=== PATIENT | male | born 1940 | race Caucasian/White ===

== ENCOUNTER 2021-02-13 09:25 | Inpatient (IN) | payer OTHER, MEDICARE ==
[~2021-02-13] VITALS: Ht 165.1 cm; Wt 88.8 kg
--- NOTE | 2021-02-13 11:32 | NUR ---
unable to get iv placed, iv team paged
[2021-02-13 12:18] LABS: ABSOLUTE NEUTROPHILS 16.5 thou/uL (1.4-8.2); BASOPHILS 0.1 % (0.0-2.0); HEMATOCRIT 39.6 % (42.0-52.0); HEMOGLOBIN 13.3 gm/dL (14.0-18.0); LYMPHOCYTES 4.5 % (24.0-44.0); MCHC 33.7 g/dL (28.0-37.0); MONOCYTES 9.8 % (1.0-8.0); PLATELET COUNT 165 thou/uL (150-400); POLYS 85.6 % (36.0-66.0); RBC 4.31 mil/uL (4.50-6.00); RDW 13.6 % (10.5-14.5); WBC 19.3 thou/uL (4.0-11.0)
[2021-02-13 12:24] LABS: CALCIUM 8.7 mg/dL (8.5-10.1); CREATININE 1.1 mg/dL (0.7-1.3); POTASSIUM 4.5 mmol/L (3.5-5.1)
[2021-02-13 12:30] LABS: DIRECT BILIRUBIN 0.3 mg/dL (<0.1-0.2)
[2021-02-13 14:30] LABS: URINE BILIRUBIN NEGATIVE (Negative); URINE BLOOD 1+ (Negative); URINE COLOR YELLOW; URINE GLUCOSE-RANDOM* NEGATIVE (Negative); URINE KETONES 3+ (Negative); URINE LEUKOCYTES-REFLEX TRACE (Negative); URINE PROTEIN (DIPSTICK) TRACE (Negative); URINE SPECIFIC GRAVITY 1.025 (1.005-1.035)
--- NOTE | 2021-02-13 14:34 | NUR ---
buttocks red, blanchable, excorated. pt had 2 briefs on from care home.
[2021-02-13 14:35] LABS: URINE CLARITY SL HAZY; URINE NITRITE-REFLEX POSITIVE (Negative)
[2021-02-13 14:47] LABS: BACTERIA-REFLEX >30 Many /HPF (None Seen); CASTS None Seen /LPF (None Seen); CRYSTALS None Seen /LPF (None Seen); SQUAMOUS None Seen /LPF (0-3); URINE RBC 3-10 Few /HPF (NONE SEEN); URINE WBC-REFLEX 6-15 Few /HPF (0-5)
[2021-02-13 15:19] VITALS: BP 135/63
[2021-02-13 15:58] VITALS: BP 144/77
--- NOTE | 2021-02-13 17:48 | NUR ---
ASSUMED PT CARE UPON ADMISSION TO UNIT AT 1410. PATIENT IS ALERT BUT NONVERBAL. SISTER (ADEN), AND FACILITY ([phone]) HAVE BEEN CONTACTED TO ASSIST WITH THE ADMISSION. PATIENT HAS A PATENT IV WITH FLUIDS INFUSING. PATIENT IS INCONTINENT OF BOWEL AND BLADDER. EXCORIATION NOTED IN THE PIPER AREA. PATIENT ON ROOM AIR. NO PAIN NOTED. PATIENT PLACED ON TELE. FALL PRECAUTIONS ARE IN PLACE, CALL LIGHT WITHIN REACH.
[2021-02-13] MEDS ORDERED: CARVEDILOL6.25 M1 PO (19:02)
[2021-02-13] MEDS ORDERED: DIVALPROEX SOD125 MG PO (19:03)
[2021-02-13] MEDS ORDERED: FUROSEMIDE 20 M20 M1 PO (19:04)
[2021-02-13] MEDS ORDERED: PRINIVIL20 MG PO (19:06)
[2021-02-13 19:58] VITALS: BP 134/76
--- NOTE | 2021-02-14 04:13 | NUR ---
ASSUMED CARE OF PT AT SHIFT CHANGE. PT IS ALERT BUT ONLY ORIENTED TO PERSON. FALL PRECAUTION IN PLACE. PT REQUIRES TOTAL CARE. PT RAN SR ON TELE. PT APPEARS TO BE COMFORTABLE. ASSESSMENT CHARTED. IVF CONTINUED. PT IS ABLE TO TURN SELF. PT SLEPT PART OF THE SHIFT. VSS AND NO S/S OF ACUTE DISTRESS. WILL CONTINUE TO MONITOR.
[2021-02-14 05:50] LABS: HEMATOCRIT 38.5 % (42.0-52.0); HEMOGLOBIN 13.2 gm/dL (14.0-18.0); MCH 31.9 pg (26.0-34.0); MCHC 34.4 g/dL (28.0-37.0); PLATELET COUNT 179 thou/uL (150-400); RBC 4.14 mil/uL (4.50-6.00); RDW 13.9 % (10.5-14.5); WBC 24.1 thou/uL (4.0-11.0)
[2021-02-14 06:09] LABS: CALCIUM 7.9 mg/dL (8.5-10.1); CREATININE 0.9 mg/dL (0.7-1.3); MAGNESIUM 2.1 mg/dL (1.8-2.4); POTASSIUM 4.6 mmol/L (3.5-5.1)
[2021-02-14 07:26] VITALS: BP 135/67
[2021-02-14 09:04] LABS: ABSOLUTE NEUTROPHILS 20.5 thou/uL (1.4-8.2)
[2021-02-14 09:05] LABS: ANISOCYTOSIS SLIGHT
--- NOTE | 2021-02-14 11:57 | NUR ---
PT ADMITTED RELATED TO UTI, SEPSIS. CM REVIEWED CHART AND SPOKE WITH CARE TEAM. CM CALLED AND SPOKE WITH PT'S SISTER/DPOA ADEN PEREZ THIS DAY. SHE INDICATED THAT PT RESIDES AT [facility] ([facility]) IN [place]. SHE INDICATED SHE DIDN'T KNOW IF PT HAD USED ANY DME CARD GAME OPERATOR. SHE INDICATED THAT FACILITY SHOULD HAVE COPY OF DPOA PAPERWORK. SHE INDICATED SHE PLANS ON PT RETURNING TO FACILITY ONCE MEDICALLY STABLE. SHE INDICATED THAT PT HAS BEEN IN A FACILITY SETTING FOR 5 YRS. CM CALLED AND SPOKE WITH NURSE NAMED NICK AT [facility] AND SHE INDICATED THAT PT HAD BEEN INDEPDNENT WITH GAIT CARD GAME OPERATOR AND THAT HE HAD BEEN ON A REGULAR DIET. CM INDICATED THAT PT AND OT ARE ORDERED AND THAT ST ASSESSED AND THAT PT IS ON PUREED DIET AND NECTAR THICK LIQUIDS. PT ON DAILY IV CEFTRIAXONE. CM FOLLOWING REGARDING DC PLANNING. PT'S SISTER IS ON HER WAY HERE TO VISIT AND PLANS TO SEE PT ON THURSDAY.
--- NOTE | 2021-02-14 12:55 | NUR ---
Received awake on bed. Due medications given as prescribed. On room air. Vital signs stable. On telemetry; no complains and signs of chest pain, crushing sensation and heaviness. On nothing per orem- pt informed and aware; a/w ST evaluation. Incontinent of bowel and bladder, checked frequently and changed as needed. Non-verbal. No nausea, no vomiting and no abdominal pain noted. With NS at 75cc/hr, infusing well at R FA; on IV antibiotics as well. Pt turned on his sides, barrier cream applied every incontinent episode. No sign of pain noted during assessment. To continue monitoring patient.
--- NOTE | 2021-02-14 14:42 | NUR ---
FAXED CLINICAL UPDATES TO [facility]. WILL CONFIRM WITH MARI/MORGAN THAT HE RECEIVED. [facility] P [phone]; FAX [phone]
[2021-02-14 15:21] VITALS: BP 130/74
[2021-02-14 19:55] VITALS: BP 114/62
--- NOTE | 2021-02-15 04:43 | NUR ---
Assumed pt care at 1900. Alert,oriented to self with aphasia and marmbles some unclear words when spoken to. Pt gets irritable/combative during cares. Temp 100.0 medicated with Tylenol PO came down to 98.5. Incontinent of bladder this shift;pericare done PRN/moisture barrier applied as needed. IVF infusing via RFA w/o problems. NSR on telemetry. Fall precautions in place,resting quietly w/o distress, will continue to monitor pt.
[2021-02-15 07:36] VITALS: BP 126/64
--- NOTE | 2021-02-15 11:47 | NUR ---
CARE TEAM INDICATED THAT PT JOSE LIKELY BE MEDICALLY STABLE TO DC BACK TO [facility] TOMORROW Thursday02/15/21. CLINICAL UPDATE SENT TO FACILITY WITH NOTIFICATION. CM TO NOTIFY PT'S SISTER/DPOA OF PROBABLE DC TOMORROW. CHART COPY ORDERED. ORDERS WILL NEED TO BE FAXED TO 91 . CALL TO ARRANGE TRANSPORT AND GIVE REPORT.
--- NOTE | 2021-02-15 14:07 | NUR ---
Received awake on bed. Due medications given as prescribed. On room air. Vital signs stable. On telemetry; no complains and signs of chest pain, crushing sensation and heaviness- No code. On pureed diet, nectar thick liquids; assisted and encouraged in eating and drinking; no nausea, no vomiting and no abdominal pain noted. Incontinent of bowel and bladder, checked frequently and changed as needed. With NS at 75cc/hr, infusing well at R FA. Barrier cream applied every incontinent episode. No signs of pain noted during assessment. Pt non verbal, checked frequently. Pt able to sit out on the chair today; with episodes of impulsiveness; chair and bed alarm on. Covid swab done- specimen obtained and sent as per CM. To continue monitoring patient.
[2021-02-15 15:04] LABS: ABSOLUTE NEUTROPHILS 3.3 thou/uL (1.4-8.2); BASOPHILS 0.5 % (0.0-2.0); EOSINOPHILS 1.5 % (0.0-3.0); HEMATOCRIT 38.1 % (42.0-52.0); LYMPHOCYTES 13.6 % (24.0-44.0); MCHC 34.2 g/dL (28.0-37.0); MCV 90.7 fL (80.0-100.0); MONOCYTES 20.5 % (1.0-8.0); PLATELET COUNT 174 thou/uL (150-400); POLYS 63.9 % (36.0-66.0); RDW 13.5 % (10.5-14.5)
[2021-02-15 15:14] LABS: WBC 5.2 thou/uL (4.0-11.0)
[2021-02-15 15:43] VITALS: BP 117/58
[2021-02-15 21:13] VITALS: BP 121/64
--- NOTE | 2021-02-16 05:29 | NUR ---
PATIENT AOX1 CONFUSED AND FORGETFUL. PATIENT IS NON VERBAL. PATIENT ENCOURAGED FLUIDS. PATIENT ON PUREE THICKEN LIQUIDS. PATIENT INCONTIENT THIS SHIFT PERICARE AND BARRIER CREAM APLLIED NEEDED. PATIENT IS UNCOPERATIVE WITH CARE AT TIMES. FALL PRECAUTION IN PLACE.PATIENT IN BED ASLEEP AT THIS TIME BREATHING REGULAR AND UNLBOURED.
[2021-02-16 07:39] VITALS: BP 142/81
[2021-02-16] MEDS ORDERED: LEVOFLOXACIN500 MG PO (12:11)
[2021-02-16] MEDS ORDERED: MIRALAX17 GM PO (12:11)
[2021-02-16] MEDS ORDERED: ACETAMINOPHEN325 M1 PO (12:11)
--- NOTE | 2021-02-16 13:31 | NUR ---
[facility] advised by [facility] [phone] that pt transport set for [phone]. [facility] ADVISED NOD AND PROVIDED A NUMBER FOR REPORT [phone] AND INSTRUCTED TO ASK FOR "[facility] OR [address] [place] [address] NURSE." [facility]ANCA FAXED D/C SUMMARY/ORDER TO O[facility] CLARK CONFIRMED RECEIPT
--- NOTE | 2021-02-16 13:59 | NUR ---
ASSUMED CARE OF PATIENT AT SHIFT CHANGE. ASSESSMENT CHARTED. MEDICATIONS ADMINISTERED PER EMAR. VSS. PATIENT IS ALERT TO SELF; TURNING TOWARDS THE PERSON CALLING HIS NAME. PATIENT ATTEMPTS TO SPEAK BUT IS NON-VERBAL. PATIENT IS INCONTINENT OF BOWEL AND BLADDER AND CHECKED AND CHANGED MULTIPLE TIMES. PATIENT IS A FEEDER; ON A PUREED DIET AND TOLERATING WELL. FLUIDS AND ABX INFUSED W NO ISSUES. PATIENT TRANSFERRED FROM [facility] TO WITH [facility]. REPORT WAS ATTEMPTED TO BE CALLED TO [facility]. LET MASSAGE. IV DISCONTINUED; REPORT GIVEN TO TRANSPORTATION. NO ISSUES VOICED OR NOTYED. WILL CONTINUE TO MONITOR AND FOLLOW PLAN OF CARE
== END 2021-02-16 14:42 | DRG 871 ==
LOC: ER 09:25 → EROBS 15:19 → 4W 15:19
PROVIDERS: Emergency Medicine; Nurse Practitioner; ADMIT Internal Medicine; ATTEND Internal Medicine
DX: A41.9 Sepsis, unspecified organism (principal); G93.41 Metabolic encephalopathy; N30.00 Acute cystitis without hematuria; E44.0 Moderate protein-calorie malnutrition; N17.9 Acute kidney failure, unspecified; R47.01 Aphasia; F03.90 Unspecified dementia, unspecified severity, without behavioral disturbance, psychotic disturbance, mood disturbance, and anxiety; I10 Essential (primary) hypertension; K21.9 Gastro-esophageal reflux disease without esophagitis; F32.9 Major depressive disorder, single episode, unspecified; G47.00 Insomnia, unspecified; M19.90 Unspecified osteoarthritis, unspecified site; E78.5 Hyperlipidemia, unspecified; E66.01 Morbid (severe) obesity due to excess calories; Z20.822 Contact with and (suspected) exposure to COVID-19; R53.81 Other malaise; R13.10 Dysphagia, unspecified; B96.20 Unspecified Escherichia coli [E. coli] as the cause of diseases classified elsewhere; Z86.73 Personal history of transient ischemic attack (TIA), and cerebral infarction without residual deficits; Z86.16 Personal history of COVID-19; Z88.0 Allergy status to penicillin; Z68.32 Body mass index [BMI] 32.0-32.9, adult
CPT/HCPCS: 10045